=== PATIENT | female | born 1985 | race African-American/Black ===

== ENCOUNTER 2020-12-18 12:59 | Emergency (ER) | payer BC, SELFPAY ==
--- NOTE | 2020-12-18 13:00 | ED.BACK ---
HPI - Back Pain/Injury General Chief Complaint: Back Pain/Injury Stated Complaint: Back Pain Rt Flank Time Seen by Provider: 12/18/20 13:00 History of Present Illness HPI Narrative: 35-year-old female nonsmoker with noncontributory medical history presents by EMS for evaluation of right flank and abdominal pain that has become rather intense over the past few hours. She is nauseated but denies any vomiting. She denies any injury, trauma or history of the same. She denies any change in bowel habits such as constipation or diarrhea. She denies dysuria, frequency or urgency. She states there is no chance that she is . She denies any vaginal bleeding or discharge. It seems that on occasion her symptoms are worse with motion and improves with rest but other time she develops it crampy type pain without any obvious provocation. Her radiation is from flank around to her front side abdomen. Related Data Previous Rx's Medication Instructions Recorded amoxicillin 875 mg-potassium 1 tab PO BID #20 tab 12/20/18 clavulanate 125 mg tablet (Augmentin) amoxicillin 875 mg-potassium 1 tab PO BID #20 tab 12/18/20 clavulanate 125 mg tablet (Augmentin) hydrocodone 5 mg-acetaminophen 325 1 tab PO Q4-6H PRN #10 tab 12/18/20 mg tablet ondansetron 4 mg disintegrating 4 mg PO TID-QID PRN #10 tab 12/18/20 tablet Allergies Allergy/AdvReac Type Severity Reaction Status Date / Time No Known Drug Allergies Allergy Verified 12/18/20 13:01 Review of Systems Review of Systems Narrative: GENERAL: Denies chills, fatigue, malaise, fever, sweats. HEENT: Denies sinus pain, ear pain, sore throat, difficulty swallowing, dizziness. RESPIRATORY: Denies dyspnea, cough, wheezing, hemoptysis, sputum. CARDIOVASCULAR: Denies chest pain, palpitations, orthopnea, edema, GASTROINTESTINAL: See HPI : Denies dysuria, frequency, incontinence, hematuria, urinary retention. MUSCULOSKELETAL: See HPI SKIN: Denies rash, skin lesions, or other NEUROLOGIC: Denies weakness, headache, numbness, change in speech, confusion, seizures, incoordination. PSYCHIATRIC: No concerning psychosocial issues. 12 point review of systems is negative except for those stated above Patient History Social History Smoking Status: Never smoker Exam Narrative Exam Narrative: GENERAL: [35] year old patient appears stated age. Well-developed patient, in obvious pain, squirming on the cart HEAD: Atraumatic. Normocephalic. EYES: Pupils equal round and reactive. Extraocular motions intact. No scleral icterus. No injection or drainage. ENT: Nose without bleeding, purulent drainage. Throat without erythema, tonsillar hypertrophy or exudate. Airway patent. NECK: Trachea midline. Non tender CARDIOVASCULAR: Regular rate and rhythm without murmurs, gallops, or rubs. RESPIRATORY: Clear to auscultation. Breath sounds equal bilaterally. No wheezes, rales, or rhonchi. GASTROINTESTINAL: Abdomen soft, tender on the right side of abdomen bowel sounds present in all 4 quadrants EXTREMITIES: No edema or joint tenderness. BACK: Nontender without deformity or crepitance. No flank tenderness. NEURO: AOx3. SKIN: No rash or erythema of visible areas Initial Vital Signs Initial Vital Signs: Vital Signs Temperature 98.6 F 12/18/20 13:01 Pulse Rate 77 12/18/20 13:01 Respiratory Rate 22 12/18/20 13:01 Blood Pressure 152/86 H 12/18/20 13:01 Pulse Oximetry 100 12/18/20 13:01 Course Orders Ordered: Discontinued Medications Sodium Chloride (Normal Saline 0.9%) 1,000 mls @ 1,000 mls/hr IV BOLUS ONE Stop: 12/18/20 14:04 Last Infusion: 12/18/20 16:17 Dose: 0 mls/hr Documented by: Admin: 12/18/20 13:30 Dose: 1,000 mls/hr Documented by: DEANDRA Ketorolac Tromethamine (Ketorolac 30 Mg/Ml Vial) 15 mg IV NOW ONE Stop: 12/18/20 13:06 Last Admin: 12/18/20 13:29 Dose: 15 mg Documented by: DEANDRA Reevaluation(s) Reevaluation #1: Patient feeling much better after above-stated therapies Vital Signs Vital signs: Vital Signs - 8 hr 12/18/20 13:01 Temperature 98.6 F Pulse Rate 77 Respiratory Rate 22 Blood Pressure 152/86 H Pulse Oximetry 100 MDM - Back Pain/Injury Lab Data Result diagrams: 12/18/20 13:05 12/18/20 13:05 Labs: Lab Results 12/18/20 12/18/20 Range/Units 13:05 13:05 WBC 9.3 (4.5-11.0) X10^3/uL RBC 5.26 H (4.0-5.2) X10^6/uL Hgb 15.7 (12.0-16.0) g/dL Hct 46.7 H (36-46) % MCV 88.9 (80-100) fL MCH 29.8 (26-34) PG MCHC 33.6 (30-36) % RDW 13.4 (11.6-14.8) % Plt Count 312 (150-400) X10^3/uL Neut % (Auto) 60.9 (50-75) % Lymph % (Auto) 30.7 (25-40) % [place] % (Auto) 6.8 (3-14) % Eos % (Auto) 0.8 L (2-4) % Baso % (Auto) 0.8 (0-2) % Neut # (Auto) 5700 (7369-7265) /uL Lymph # (Auto) 2900 (5130-7760) /uL [place] # (Auto) 600 (0-900) /uL Eos # (Auto) 100 (0-450) /uL Baso # (Auto) 100 (0-100) /uL Sodium 139 (137-145) mmol/L Potassium 3.9 (3.4-5.1) mmol/L Chloride 107 (98-107) mmol/L Carbon Dioxide 21 L (22-32) mmol/L BUN 15 (7-17) mg/dL Creatinine 0.87 (0.52-1.04) mg/dL Estimated GFR > 60.0 (>60) mL/min BUN/Creatinine Ratio 17.2 (6-22) Glucose 99 (70-100) mg/dL Calcium 10.4 H (8.4-10.2) mg/dL Total Bilirubin 0.5 (0.2-1.3) mg/dL AST 26 (14-36) IU/L ALT 23 (<35) IU/L Alkaline Phosphatase 100 (38-126) U/L Total Protein 8.6 H (6.3-8.2) g/dL Albumin 4.9 (3.5-5.0) g/dL Globulin 3.7 (1.7-4.1) g/dL Albumin/Globulin Ratio 1.3 (1.0-2.8) Point of Care Testing Test Results Negative Urine Dip Bedside Urine Glucose Negative Bedside Urine Bilirubin - Negative Bedside Urine Ketone - Negative Urine Specific [place] 1.015 Bedside Urine Occult Blood - Negative Bedside Urine pH 7.0 Bedside Urine Protein - Negative Bedside Urine Urobilinogen - Negative Bedside Urine Nitrite - Negative Bedside Urine Leukocytes - Negative Esterase Imaging Data CT scan - abdomen/pelvis: Radiologist's Impression: Isabel Estevez 35 F [address] [id number] Scan ReportSigned Patient: Isabel Estevez JMR#: [id number]: 1985Acct:[id number]/Sex: 35 / FDate of Service: 12/18/20Loc: EDAccession Number: [id number] Procedure: CT kidney ureter bladder (KUB) Ordering Provider: Edgar Moreno D.O. PROCEDURE: CT KIDNEY URETER BLADDER (KUB) INDICATIONS: severe sudden R flank pain with radiation to RLQ TECHNIQUE: Axial sections were acquired from the lung bases to the pubic symphysis. Coronal and sagittal reformats were performed. For radiation dose reduction, the following was used: automated exposure control, adjustment of mA and/or kV according to patient size. COMPARISON:None. FINDINGS: Image quality: Excellent. Lung bases: Bibasilar dependent atelectasis. Heart: No significant findings. URINARY: Right Kidney: No stones or hydronephrosis. Right Ureter: No hydroureter. Left Kidney: No stones or hydronephrosis. Left Ureter: No hydroureter. Bladder: Bladder is not fully distended. Bladder wall is normal in thickness. No stones. ABDOMEN: Liver: Unremarkable. Gallbladder: Small gallstones may be present Biliary ducts: Unremarkable. Pancreas: Unremarkable. Spleen: Unremarkable. Adrenal Glands: Unremarkable. Stomach and Bowel: There is diffuse colonic wall thickening involving the hepatic flexure, transverse colon and splenic flexure consistent with segmental colitis. Appendix is retrocecal and appears normal (series 2, image [id number]). Peritoneum: No abnormal intraperitoneal fluid. No free air. Ventral Wall: Tiny fat containing umbilical hernia. Abdominal Nodes: No enlarged retroperitoneal or mesenteric lymph nodes. Vessels: Aorta and inferior vena cava are normal in size. PELVIS: Pelvic Organs: Uterus and ovaries are normal. There is a cyst in the right ovary, likely a dominant ovarian follicle. No pathological free-fluid in the cul-de-sac. Pelvic Nodes: Unremarkable. Miscellaneous: No inguinal hernias are seen. Bones: Unremarkable. IMPRESSION: 1. Segmental colitis involving the hepatic flexure, transverse colon and splenic flexure. Differential diagnosis include infectious colonic is versus inflammatory bowel disease. 2. Normal appendix. 3. No renal stone or hydronephrosis. Dictated by: Flora Drake M.D. on 12/18/2020 at 14:46 Approved by: Flora Drake M.D. on 12/18/2020 at 14:52 MDM Narrative Medical decision making narrative: Multiple etiologies for patient's symptoms considered including: [Kidney stone versus bowel obstruction versus musculoskeletal versus other] Patient's symptoms improved over duration of stay with above-stated therapies. Findings and discharge diagnosis discussed with patient/family followed by verbalization of understanding Return precautions discussed with patient/family whom verbalize understanding. Discharge Plan Departure Patient Disposition: Home Clinical Impression: Colitis Instructions: DI for Colitis Activity Restrictions/Additional Instructions: *You have been diagnosed with [pain with CT that demonstrates colitis. No evidence of bowel obstruction or kidney stone] *What to do: *Please continue to take your regular medications as directed. [x ] New medication prescriptions sent to your pharmacy: [[facility] in [place] ] [ ] New medication written as a paper prescription [ ] No new medications given *Please follow up with your primary care provider in 2-3 days, call for an appointment. Let them know you were seen in the Emergency Department and that we ask that you be seen in follow up. We will electronically transmit a record of today's note if your PCP is in our system * please consume clear liquids for the next 24-48 hours and then advance as tolerated *If you do not have a primary care provider please contact the [facility] Resource line at [phone]. They will ask some questions about your medical history and help get you set up with a doctor in the community. *Return to Emergency Department if you should have any new, worsening or concerning symptoms, such as [fever greater than 101 F, shaking chills, worsening pain, persistent vomiting or other bothersome symptoms] Prescriptions: New amoxicillin-pot clavulanate [Augmentin] 875-125 mg tablet 1 tab PO BID Qty: 20 RF: 0 hydrocodone-acetaminophen 5-325 mg tablet 1 tab PO Q4-6H PRN (Reason: pain) Qty: 10 RF: 0 ondansetron 4 mg tablet,disintegrating 4 mg PO TID-QID PRN (Reason: nausea and vomiting) Qty: 10 RF: 0 No Action amoxicillin-pot clavulanate [Augmentin] 875-125 mg tablet 1 tab PO BID Qty: 20 RF: 0
[2020-12-18 13:01] VITALS: BP 152/86; PULSE 77; RESP 22; TEMP 37; O2SAT 100; BMI 31.6
[2020-12-18 13:23] LABS: Add Manual Diff / Slide Review NO; Basophils Absolute Auto 100 /uL (0-100); Basophils Percent Auto 0.8 % (0-2); Eosinophils Absolute Auto 100 /uL (0-450); Eosinophils Percent Auto 0.8 % (2-4); Hematocrit 46.7 % (36-46); Hemoglobin 15.7 g/dL (12.0-16.0); Lymphocytes Absolute Auto 2900 /uL (1100-4500); Lymphocytes Percent Auto 30.7 % (25-40); Mean Corpuscular HGB Conc 33.6 % (30-36); Mean Corpuscular Hemoglobin 29.8 PG (26-34); Mean Corpuscular Volume 88.9 fL (80-100); Monocytes Absolute Auto 600 /uL (0-900); Monocytes Percent Auto 6.8 % (3-14); Neutrophils Absolute Auto 5700 /uL (1500-7000); Neutrophils Percent Auto 60.9 % (50-75); Platelet Count 312 X10^3/uL (150-400); Red Blood Cell Count 5.26 X10^6/uL (4.0-5.2); Red Cell Distribution Width 13.4 % (11.6-14.8); White Blood Cell Count 9.3 X10^3/uL (4.5-11.0)
[2020-12-18] MEDS: KETOROLAC 30 MG/ML VIAL 15 MG IV (13:29)
[2020-12-18] MEDS: SODIUM CHLORIDE 0.9% 1,000 ML 1000 ML IV (13:30)
--- NOTE | 2020-12-18 13:36 | DI.CT.S_ITS ---
PROCEDURE: CT KIDNEY URETER BLADDER (KUB) INDICATIONS: severe sudden R flank pain with radiation to RLQ TECHNIQUE: Axial sections were acquired from the lung bases to the pubic symphysis. Coronal and sagittal reformats were performed. For radiation dose reduction, the following was used: automated exposure control, adjustment of mA and/or kV according to patient size. COMPARISON:None. FINDINGS: Image quality: Excellent. Lung bases: Bibasilar dependent atelectasis. Heart: No significant findings. URINARY: Right Kidney: No stones or hydronephrosis. Right Ureter: No hydroureter. Left Kidney: No stones or hydronephrosis. Left Ureter: No hydroureter. Bladder: Bladder is not fully distended. Bladder wall is normal in thickness. No stones. ABDOMEN: Liver: Unremarkable. Gallbladder: Small gallstones may be present Biliary ducts: Unremarkable. Pancreas: Unremarkable. Spleen: Unremarkable. Adrenal Glands: Unremarkable. Stomach and Bowel: There is diffuse colonic wall thickening involving the hepatic flexure, transverse colon and splenic flexure consistent with segmental colitis. Appendix is retrocecal and appears normal (series 2, image [id number]). Peritoneum: No abnormal intraperitoneal fluid. No free air. Ventral Wall: Tiny fat containing umbilical hernia. Abdominal Nodes: No enlarged retroperitoneal or mesenteric lymph nodes. Vessels: Aorta and inferior vena cava are normal in size. PELVIS: Pelvic Organs: Uterus and ovaries are normal. There is a cyst in the right ovary, likely a dominant ovarian follicle. No pathological free-fluid in the cul-de-sac. Pelvic Nodes: Unremarkable. Miscellaneous: No inguinal hernias are seen. Bones: Unremarkable. IMPRESSION: 1. Segmental colitis involving the hepatic flexure, transverse colon and splenic flexure. Differential diagnosis include infectious colonic is versus inflammatory bowel disease. 2. Normal appendix. 3. No renal stone or hydronephrosis. Dictated by: Flora Drake M.D. on 12/18/2020 at 14:46 Approved by: Flora Drake M.D. on 12/18/2020 at 14:52
[2020-12-18 13:41] LABS: Alanine Aminotransferase 23 IU/L (<35); Albumin 4.9 g/dL (3.5-5.0); Albumin Globulin Ratio 1.3 (1.0-2.8); Alkaline Phosphatase 100 U/L (38-126); Aspartate Aminotransferase 26 IU/L (14-36); BUN Creatinine Ratio 17.2 (6-22); Bilirubin Total 0.5 mg/dL (0.2-1.3); Blood Urea Nitrogen 15 mg/dL (7-17); Calcium 10.4 mg/dL (8.4-10.2); Carbon Dioxide 21 mmol/L (22-32); Chloride 107 mmol/L (98-107); Estimated Glomerular Filt Rate > 60.0 mL/min (>60); Globulin 3.7 g/dL (1.7-4.1); Glucose 99 mg/dL (70-100); HEMOLYSIS < 15 (0-50); Potassium 3.9 mmol/L (3.4-5.1); Sodium 139 mmol/L (137-145); Total Protein 8.6 g/dL (6.3-8.2)
--- NOTE | 2020-12-18 15:06 | PC.NURSE ---
pt states she did have a twinge when she lifted her dog this am.
[2020-12-18 16:38] VITALS: BP 133/73; PULSE 73; RESP 69; O2SAT 73
== END 2020-12-18 16:53 | disposition home or self-care (01) ==
PROVIDERS: Emergency Provider Emergency Medicine
DX: K52.9 Noninfective gastroenteritis and colitis, unspecified (principal)
CPT/HCPCS: 36415; 74176; 80053; 81003; 81025; 85025; 96361; 96374; 99284; J1885

== ENCOUNTER → 2022-01-08 13:28 | Outpatient (ROUT) | payer BC, SELFPAY ==
[2022-01-08 13:50] LABS: COVID19 -Nasal RAPID Negative (Negative)
== END ==
PROVIDERS: Visit Provider Family Medicine
DX: Z20.822 Contact with and (suspected) exposure to COVID-19 (principal)
CPT/HCPCS: 87635

== ENCOUNTER → 2022-02-06 12:08 | Outpatient (CLI) | payer BC, SELFPAY ==
--- NOTE | 2022-02-06 | DI.US.S_ITS ---
PROCEDURE: US ABDOMEN LIMITED INDICATIONS: LEFT ABDOMINAL WALL LUMP TECHNIQUE: Real-time focused scanning was performed of the abdomen, with image documentation. Color Doppler was also utilized. COMPARISON: None. FINDINGS: At the area of clinical concern, there is a sigmoid tiny S ovoid lesion without abnormal vascularity that is slightly hyperechoic to the surrounding normal subcutaneous fat that measures 1.6 x 1 x 1.9 cm. No findings of hernia can be seen, including with upright imaging and Valsalva maneuver. IMPRESSION: Negative for hernia. There is a 1.9 cm lipoma seen at the area of clinical concern. Dictated by: Harpreet Agosto M.D. on 02/06/2022 at 13:31 Approved by: Harpreet Agosto M.D. on 02/06/2022 at 13:33
== END ==
PROVIDERS: PCP Family Medicine; Referring Provider Family Medicine; Visit Provider Family Medicine
DX: R19.04 Left lower quadrant abdominal swelling, mass and lump (principal); D17.79 Benign lipomatous neoplasm of other sites
CPT/HCPCS: 76705

== ENCOUNTER → 2022-06-18 15:47 | Outpatient (CLI) | payer BC, SELFPAY ==
[2022-06-18 16:21] LABS: COVID19 -Nasal RAPID Negative (Negative)
== END ==
PROVIDERS: PCP Family Medicine; Visit Provider Obstetrics & Gynecology
DX: Z01.812 Encounter for preprocedural laboratory examination (principal); Z20.822 Contact with and (suspected) exposure to COVID-19
CPT/HCPCS: 87635

== ENCOUNTER 2022-06-19 12:45 | Day surgery (SDC) | payer BC, SELFPAY ==
[2022-06-13 09:52] VITALS: BMI 31.9
--- NOTE | 2022-06-19 | PATH_ITS ---
[facility] Accession Number: [id number] No. of containers..01 Tissue . 01 Material submitted: . fallopian tube - BILATERAL FALLOPAIN TUBES . 01 Diagnosis: Bilateral Fallopian Tubes, Bilateral Salpingectomies: Bilateral fimbriated fallopian tubes. No evidence of neoplasm. MRV 06/25/2022 1813 Local . 01 Electronically signed: . Fabricio Kong MD, PhD, Pathologist NPI- [id number] . 01 Gross description: . The specimen is received in formalin labeled with the patient's name, , and bilateral fallopian tubes, and consists of two unoriented fimbriated fallopian tubes measuring 9.2 x 0.8 cm and 7.0 x 0.9 cm, respectively. The longer fallopian tube has congested smooth serosa with no cystic structures identified. Sectioning reveals an unremarkable stellate lumen. The shorter fallopian tube has congested smooth serosa with no cystic structures identified. Sectioning reveals an unremarkable stellate lumen. Wafer [employer] sections to include entire bisected fimbriae and cross sections are submitted as follows: A1: Longer fallopian tube. A2: Grover fallopian tube. ([id number]) /MRV 06/20/2022 1351 Local . 01 Microscopic: . A complete cross-section of fallopian tube is seen from each tubular structure submitted. . 01 Pathologist provided ICD-10: Z30.2 . 01 CPT . 820065 Specimen Comment: A courtesy copy of this report has been sent to [phone] Performed at: 01 [facility]Pending sale to [facility] [address] [place] [address] [address] [facility], [place], [place] [id number] MD Gordy Butt MD Phone: [phone]
--- NOTE | 2022-06-19 12:57 | PM.GYNHP.1 ---
History of Present Illness History of Present Illness Reason for admission: other (Request for sterilization) Narrative: Isabel is a 37-year-old , LMP 06/13/2022 presents today elective sterilization.? She currently uses condoms for contraception and has no desire for childbearing in the future.? She is aware of various forms of control and the option of male sterilization but wishes to proceed with elective sterilization herself.? Her menses are regular and her Paps have always been normal. Patient counseled regarding alternatives, risks, benefits, and potential complications associated with laparoscopic bilateral salpingectomy for sterilization.? Patient understands that this is a procedure which will make it permanently and irreversibly impossible for her to bear children without benefit of assisted reproductive technology.? In addition she understands that there is a small chance of failure (1-06/999) and should failure occur likelihood ectopic gestation is significant.? With full understanding of the above she desires to proceed with laparoscopic bilateral salpingectomy. [facility] Medical History (Updated 06/08/22 @ 20:45 by Nkechi Fried) Chicken pox (~1989) Tinnitus (~2009) Surgical History (Updated 06/08/22 @ 20:45 by Nkechi Fried) Anesthesia History of lipoma History of tonsillectomy and adenoidectomy (~1989) Family History (Updated 06/08/22 @ 20:47 by Nkechi Fried) Father Prostate cancer Hypertension Mother Hyperlipidemia Grandfather Cancer Hypertension Leukemia Grandmother Mental health problem Alzheimer's disease Social History household members: family Smoking Status: Former smoker alcohol intake: current Meds Home Medications and Allergies Home Medications Medication Instructions Recorded Confirmed Type No Known Home Medications 05/28/22 06/19/22 History Allergies Allergy/AdvReac Type Severity Reaction Status Date / Time No Known Drug Allergies Allergy Verified 06/19/22 13:03 Review of Systems Review of Systems Narrative: Problem-specific ROS positives included in HPI Exam Const General: cooperative and comfortable Nutritional Appearance: average body habitus Orientation: alert and oriented x3 HENMT Head: normal to inspection, atraumatic and abrasion Ears: hearing grossly normal bilaterally Face and sinus: face symmetric Eyes General: appearance normal, both eyes and all related structures Conjunctivae: conjunctivae normal Sclera: sclerae normal EOM: EOM intact bilaterally Neck Neck: normal visual inspection Resp Effort & Inspection: normal respiratory effort and able to speak in complete sentences Auscultation: clear to auscultation bilaterally Cardio Rate: regular rate Rhythm: regular rhythm Heart Sounds: S1 normal, S2 normal and no murmurs GI Inspection: normal to inspection Palpation: soft and no hepatosplenomegaly Other: Pelvic exam deferred Extrem General: no calf tenderness Psych Appearance: grossly normal Mental Status: mental status grossly normal Speech and Movement: speech and movement normal Mood: congruent mood Affect: normal affect Attitude: cooperative Thought Process: normal Thought Content: normal Judgment: judgment good Assessment & Plan Assessment and plan (1) Request for sterilization: Status: Acute Assessment & Plan narrative: Patient counseled regarding alternatives, risks, benefits, and potential complications associated with laparoscopic bilateral salpingectomy. With full understanding of the above, a written consent was executed, signed, and witnessed this date. Time Spent With Patient Time with patient: less than 30 minutes
[2022-06-19 13:05] VITALS: BP 123/77; PULSE 72; RESP 16; TEMP 36.4; O2SAT 98; BMI 31.9
[2022-06-19] MEDS: LACTATED RINGERS 1,000 ML 42 ML IV ×2 (13:19→14:43)
--- NOTE | 2022-06-19 14:40 | SUR.OPER ---
Lithotomy on padded OR bed, head on pillow, arms secured on padded arm boards at <90 degrees abduction. Legs secured in padded yellow fins stirrups.
[2022-06-19] MEDS: BUPIVACAINE 0.5% W/ EPI (PF) 30 ML VIAL INJ (14:48)
--- NOTE | 2022-06-19 15:06 | PM.GYNOP.1 ---
Operative Date/Time/Diagnoses Date of procedure: 06/19/22 Time of procedure: 14:15 Pre-op diagnosis: Request for sterilization Post-op diagnosis: same Procedure & Clinicians Procedure: Procedures Operation Date: 06/19/22 13:30 Actual Procedure Side Surgeon p Laparoscopic Bilateral Salpingectomy Bilateral Christos Valdez MD Indications: Isabel is a 37-year-old , LMP 06/13/2022 presents today elective sterilization.? She currently uses condoms for contraception and has no desire for childbearing in the future.? She is aware of various forms of control and the option of male sterilization but wishes to proceed with elective sterilization herself.? Her menses are regular and her Paps have always been normal. Patient counseled regarding alternatives, risks, benefits, and potential complications associated with laparoscopic bilateral salpingectomy for sterilization.? Patient understands that this is a procedure which will make it permanently and irreversibly impossible for her to bear children without benefit of assisted reproductive technology.? In addition she understands that there is a small chance of failure (1-06/999) and should failure occur likelihood ectopic gestation is significant.? With full understanding of the above she desires to proceed with laparoscopic bilateral salpingectomy. Surgeon: Christos Valdez Anesthesia Type: General Operative Notes Findings: Normal pelvis, retroverted uterus Closure Type: primary Specimen(s): left tube and right tube Estimated blood loss (mL): 5 Blood products transfused: none Procedure in detail: With the patient under satisfactory general anesthesia in the modified dorsal lithotomy position, the perineum, vagina, and abdomen were prepped and draped for IUD removal and laparoscopic bilateral salpingectomy. A pre-surgical safety time-out was then taken in accordance with [facility] Main OR protocols. The umbilicus was then infiltrated with 0.5% Marcaine with epinephrine and 1 cm vertical incision was made in the inferior aspect of the umbilicus. Veress needle was used to insufflate the abdomen with carbon dioxide and once appropriately insufflated, 5 mm bladeless trocar and sleeve were inserted through the incision. Proper placement of the sleeve was confirmed with laparoscopic visualization and insufflation of the abdomen continued. A 2nd and 3rd 5 mm laparoscopic port were placed in the right and left mid quadrants using a similar technique and using a 3 puncture technique, the abdomen and pelvis were visualized with the findings as noted above. The distal aspect of the left fallopian tube was then grasped with a grasping forceps and using a Power Seal device, fimbria ovarica was coagulated and divided the dissection using the Power Seal continuing across the mesosalpinx to the cornua where the base fallopian tube was coagulated and divided. The left fallopian tube was then removed through one of the ports and submitted pathologic specimen. Attention was then turned to the right adnexa with distal tube grasped with a grasping forcep. The Power Seal device was then used to coagulate fimbria ovarica and the dissection was carried across the mesosalpinx to the cornua where the fallopian tube on the right side was amputated at the cornua following coagulation proximal tube the Power Seal device. Pelvis was inspected and there were no abnormalities noted following bilateral salpingectomy. The pneumoperitoneum was then vented and the ports removed from the abdominal wall. Port incisions were then closed with 4-0 Monocryl using inverted interrupted stitches and skin glue was applied. Appropriate dressings were then applied, patient was awakened, and transferred to the PACU for a period of observation after having tolerated the procedure well. Complications: none Post-operative Condition: stable Disposition: PACU Plan for aftercare: Routine post-op care and follow-up visit in two weeks.
[2022-06-19 15:09] VITALS: BP 108/2; PULSE 74; RESP 16; TEMP 36.2; O2SAT 99
[2022-06-19 15:14] VITALS: BP 100/59; PULSE 71; RESP 13; O2SAT 100
[2022-06-19 15:19] VITALS: BP 100/57; PULSE 67; RESP 12; TEMP 36.7; O2SAT 100
[2022-06-19 15:30] VITALS: BP 105/58; PULSE 65; RESP 16; TEMP 36.6; O2SAT 100
[2022-06-19] MEDS: OXYCODONE IR 5 MG TABLET PO (15:41)
== END 2022-06-19 15:55 | disposition home or self-care (01) ==
PROVIDERS: PCP Family Medicine; Referring Provider Family Medicine; Visit Provider Obstetrics & Gynecology
PROC: 0UT74ZZ Resection of Bilateral Fallopian Tubes, Percutaneous Endoscopic Approach (ICD-10-PCS; CPT 58661; principal; 2022-06-19 13:30)
DX: Z30.2 Encounter for sterilization (principal); Q51.818 Other congenital malformations of uterus
CPT/HCPCS: 58661; 81025; J1100; J1170; J1885; J2405; J2704; J3010

== ENCOUNTER → 2022-07-01 11:11 | Outpatient (CLI) | payer BC, SELFPAY ==
[2022-07-01 14:21] LABS: Urine N gonorrhoeae NOT DETECTED
[2022-07-01 14:32] LABS: Urine Chlamydia NOT DETECTED
== END ==
PROVIDERS: PCP Family Medicine; Visit Provider Obstetrics & Gynecology
DX: Z11.3 Encounter for screening for infections with a predominantly sexual mode of transmission (principal)
CPT/HCPCS: 87491; 87591